=== PATIENT | female | born 1940 | race Caucasian/White ===

== ENCOUNTER 2017-06-13 15:01 | Emergency (ER) | payer MEDICARE ==
[2017-06-13 15:17] VITALS: BP 159/74
--- NOTE | 2017-06-13 16:26 | XRAY Preliminary Report ---
Exam: XR Chest 2 View PA/LAT IMPRESSION: 1. No radiopaque foreign bodies seen. 2. Moderate T12 compression fracture deformity, age indeterminate. 3. Mild cardiomegaly. Hyperexpanded lungs. [facility] SITE ID: [id number]
--- NOTE | 2017-06-13 16:29 | XRAY Report ---
EXAM: CHEST RADIOGRAPHY EXAM DATE: 06/13/2017 04:10 PM. CLINICAL HISTORY: Swallowed earrings accidentally. COMPARISON: None. TECHNIQUE: 2 views. FINDINGS: Lungs/Pleura: No focal opacities evident. No pleural effusion. No pneumothorax. Hyperexpanded lungs. Mediastinum: Mild cardiomegaly. Other: No radiopaque foreign bodies seen. Moderate T12 compression fracture deformity, age indeterminate. IMPRESSION: 1. No radiopaque foreign bodies seen. 2. Moderate T12 compression fracture deformity, age indeterminate. 3. Mild cardiomegaly. Hyperexpanded lungs. [facility] Referring Provider Line: [phone] SITE ID: [id number]
--- NOTE | 2017-06-13 17:04 | ED Physician Documentation ---
PD HPI HEENT - Stated complaint Stated Complaint: ACCIDENTAL INGESTION/EARRINGS - Chief complaint Chief Complaint: General - History obtained from History obtained from: Patient - History of Present Illness Timing - onset: Last night Timing - details: Abrupt onset (she says she had small stud earrings on bedside stand and also some meds (they are traveling so not having routine place for things as at home), and swallowed the earrings while partly asleep last night, not realizing it until being swallowed. Feeling okay today. No feeling of throat nor chest pain. Concerned about the ingestion though. She does not want to try to recover the earrings on the way out.) Location: Throat Worsens: No: Swalllowing Similar symptoms before: Has not had sx before Recently seen: Not recently seen Review of Systems Throat: denies: Sore throat Cardiac: denies: Chest pain / pressure GI: denies: Abdominal Pain, Nausea, Vomiting PD PAST MEDICAL HISTORY - Past Medical History GI: None - Present Medications Home Medications: Ambulatory Orders Medication Instructions Recorded Confirmed Alendronate [Fosamax] 70 mg PO Q7D 06/13/17 06/13/17 Amiodarone [Pacerone] 100 mg PO DAILY 06/13/17 06/13/17 Doxazosin [Cardura] 4 mg PO DAILY 06/13/17 06/13/17 Levothyroxine [Synthroid] 112 mcg PO QDAC 06/13/17 06/13/17 Lisinopril [Zestril] 40 mg PO 06/13/17 Lomotrigine 152 mg ORAL DAILY 06/13/17 - Allergies Allergies/Adverse Reactions: Allergies Allergy/AdvReac Type Severity Reaction Status Date / Time dabigatran etexilate Allergy Emesis Verified 06/13/17 15:17 mesylate * [From Pradaxa] hydrocodone Allergy Emesis Verified 06/13/17 15:17 Sulfa (Sulfonamide Allergy Emesis Verified 06/13/17 15:17 Antibiotics) PD ED PE NORMAL - Vitals Vital signs reviewed: Yes - General General: Alert and oriented X 3, No acute distress, Well developed/nourished - HEENT HEENT: Pharynx benign - Abdomen Abdomen: Soft, Non tender - Neuro Neuro: Alert and oriented X 3, Normal speech Results - Vitals Vitals: Oxygen O2 Source Room air - Rads (name of study) chest Radiology: Prelim report reviewed, EMP read contemporaneously (no FB noted) PD MEDICAL DECISION MAKING - ED course Complexity details: considered differential (CXR done and no FB seen in esophageal nor upper abd area. She says they were small mar-like studs with metal posts, so should show okay. Discussed with her getting abd xray, though at this point would not alter course of treatment, which is that they should pass out okay without problems. She is not interested in trying to recover them , so no hat/stool collection system given. ), d/w patient Departure - Departure Disposition: 01 Home, Self Care Clinical Impression: Swallowed foreign body Qualifiers: Encounter type: initial encounter Qualified Code(s): T18.9XXA - Foreign body of alimentary tract, part unspecified, initial encounter Condition: Stable Record reviewed to determine appropriate education?: Yes Instructions: ED Foreign Body Swallowed Adult Discharge Date/Time: 06/13/17 17:14
== END 2017-06-13 17:14 | disposition home or self-care (01) ==
LOC: ED 15:01
DX: T18.9XXA Foreign body of alimentary tract, part unspecified, initial encounter (principal); X58.XXXA Exposure to other specified factors, initial encounter; Y93.84 Activity, sleeping
CPT/HCPCS: 71020; 99282; 99283